=== PATIENT | male | born 1950 ===

== ENCOUNTER 2018-10-01 16:47 | Inpatient (IN) | payer MEDICARE, OTHER ==
[~2018-10-01] VITALS: Ht 185.4 cm; Wt 116.5 kg
[~2018-10-01 16:47] MED LIST: PALI6 PO; QUET300T2 PO; QUET400T PO
[2018-10-01] MEDS ORDERED: ARIP15TA2 PO (19:02)
[2018-10-01] MEDS ORDERED: ALBU8.5H8 IH (19:02)
[2018-10-01] MEDS ORDERED: OMEP20 PO (19:02)
[2018-10-01] MEDS ORDERED: LITH300C3 PO (19:02)
[2018-10-01] MEDS ORDERED: METO25XL PO (19:02)
[2018-10-01 19:35] LABS: BASOPHILS % (AUTO) 0.6 % (0.0-2.0); EOSINOPHILS % (AUTO) 3.4 % (1.0-6.0); HEMATOCRIT 47.2 % (41-53); HEMOGLOBIN 15.9 g/dL (13.5-17.5); LYMPHOCYTES # (AUTO) 3.8 K/uL (1.0-4.8); LYMPHOCYTES % (AUTO) 35.3 % (22.0-44.0); MEAN CORPUSCULAR HEMOGLOBIN 32.4 pg (26.0-34.0); MEAN CORPUSCULAR HGB CONC 33.8 G/dL (31.0-37.0); MEAN CORPUSCULAR VOLUME 96 fL (80-100); MONOCYTES # (AUTO) 1.2 K/uL (0.1-1.0); MONOCYTES % (AUTO) 11.4 % (2.0-9.0); NEUTROPHILS # (AUTO) 5.3 K/uL (1.8-7.7); NEUTROPHILS % (AUTO) 49.3 % (40.0-70.0); PLATELET COUNT (AUTO) 361 K/uL (150-450); RED BLOOD CELL COUNT(AUTO) 4.93 MIL/uL (4.50-5.90); RED CELL DISTRIBUTION WIDTH 14.2 % (11.5-14.5)
[2018-10-01 19:48] LABS: ANION GAP 9 mmol/L (8-16); CALCIUM, TOTAL 9.7 mg/dL (8.8-10.5); CARBON DIOXIDE 27 mmol/L (22-29); CHLORIDE 104 mmol/L (98-107); CREATININE 0.83 mg/dL (0.60-1.30); GLOMERULAR FILTR. RATE CALC > 60 mL/min (>60); GLUCOSE,RANDOM 99 mg/dL (70-110); POTASSIUM 4.2 mmol/L (3.5-5.1); SODIUM SERUM 140 mmol/L (136-145); UREA NITROGEN, BLOOD 7 mg/dL (7-18)
[2018-10-01 19:54] LABS: ALANINE AMINOTRANSFERASE 51 U/L (12-78); ALKALINE PHOSPHATASE 84 U/L (46-116); ASPARTATE AMINOTRANSFERASE 25 U/L (15-37); BILIRUBIN,TOTAL 0.5 mg/dL (0.1-1.0); TOTAL PROTEIN, SERUM 7.8 g/dL (6.4-8.2)
[2018-10-01 20:08] LABS: LITHIUM 0.23 mmol/L (0.60-1.20)
[2018-10-01 20:21] LABS: B-TYPE NATRIURETIC PEPTIDE 6 pg/mL (0-100)
[2018-10-01 20:29] LABS: CREATINE KINASE, TOTAL ONLY 172 U/L (39-308); THYROID STIMULATING HORMONE 0.83 uIU/mL (0.36-3.74)
[2018-10-01 20:53] LABS: APPEARANCE,URINE CLEAR (CLEAR); BILIRUBIN,URINE NEGATIVE (NEGATIVE); GLUCOSE, URINE (UA) NEGATIVE (NEGATIVE); KETONES,URINE NEGATIVE (NEGATIVE); LEUKOCYTE ESTERASE ,URINE SMALL (NEGATIVE); NITRATE,URINE NEGATIVE (NEGATIVE); OCCULT BLOOD,URINE NEGATIVE (NEGATIVE); PH,URINE 6.5 (5.0-8.0); PROTEIN,URINE NEGATIVE (NEGATIVE); UROBILINOGEN,URINE 0.2 mg/dL (<=1.0)
[2018-10-01 20:59] LABS: BACTERIA,URINE Few /HPF (None Seen); RBC,URINE 0-2 /HPF (0-2); WBC,URINE 26-50 /HPF (0-5)
[2018-10-01 21:00] LABS: SQUAMOUS EPITHELIAL CELL,UR Rare /LPF (None Seen)
[2018-10-01] MEDS ORDERED: 0.9% SODIUM CHLORIDE 10 ML SYRINGE IVP PRN (21:00)
[2018-10-01] MEDS ORDERED: ACETAMINOPHEN 325 MG TABLET PO PRN ×2 (21:00→22:30)
[2018-10-01] MEDS ORDERED: GuaiFENesin/D-METHORPHAN/PHENYLEPH 5 ML LIQUID ORAL.SYG PO PRN (21:45)
[2018-10-01] MEDS ORDERED: HYDROCODONE/ACETAMINOPHEN 5-325 MG TABLET PO PRN (22:30)
[2018-10-01] MEDS ORDERED: ONDANSETRON HCL 4 MG/2 ML VIAL IVP PRN (22:30)
[2018-10-01] MEDS ORDERED: BISACODYL 10 MG RECTAL RECTAL SUPPOSITORY PR PRN (22:30)
[2018-10-01] MEDS ORDERED: ALBUTEROL SULFATE HFA 90 MCG/PUFF 8 GM INHALER IH PRN (22:30)
[2018-10-01] MEDS ORDERED: MAGNESIUM HYDROXIDE SUSPENSION 30 ML UDCUP PO PRN (22:30)
[2018-10-01] MEDS ORDERED: MORPHINE SULFATE 4 MG/ML SYRINGE IVP PRN (22:30)
[2018-10-01 23:03] LABS: INFLUENZA TYPE A NEGATIVE FOR TYPE A (NEGATIVE); INFLUENZA TYPE B NEGATIVE FOR TYPE B (NEGATIVE)
[2018-10-02] MEDS: HEPARIN SODIUM,PORCINE 5,000 UNITS/ML VIAL SQ SCH ×4 (00:49→23:41)
[2018-10-02 04:30] LABS: BASOPHILS % (AUTO) 0.6 % (0.0-2.0); HEMATOCRIT 45.8 % (41-53); HEMOGLOBIN 15.8 g/dL (13.5-17.5); LYMPHOCYTES # (AUTO) 2.4 K/uL (1.0-4.8); LYMPHOCYTES % (AUTO) 24.1 % (22.0-44.0); MEAN CORPUSCULAR HEMOGLOBIN 33.3 pg (26.0-34.0); MEAN CORPUSCULAR HGB CONC 34.6 G/dL (31.0-37.0); MEAN CORPUSCULAR VOLUME 96 fL (80-100); MONOCYTES % (AUTO) 10.2 % (2.0-9.0); NEUTROPHILS # (AUTO) 6.2 K/uL (1.8-7.7); NEUTROPHILS % (AUTO) 62.1 % (40.0-70.0); PLATELET COUNT (AUTO) 313 K/uL (150-450); RED BLOOD CELL COUNT(AUTO) 4.75 MIL/uL (4.50-5.90); RED CELL DISTRIBUTION WIDTH 13.8 % (11.5-14.5)
[2018-10-02 04:54] LABS: ALANINE AMINOTRANSFERASE 50 U/L (12-78); ALBUMIN 3.6 g/dL (3.4-5.0); ALKALINE PHOSPHATASE 71 U/L (46-116); ANION GAP 5 mmol/L (8-16); ASPARTATE AMINOTRANSFERASE 24 U/L (15-37); BILIRUBIN,TOTAL 0.5 mg/dL (0.1-1.0); CALCIUM, TOTAL 8.9 mg/dL (8.8-10.5); CARBON DIOXIDE 29 mmol/L (22-29); CHLORIDE 107 mmol/L (98-107); CREATININE 0.91 mg/dL (0.60-1.30); GLOMERULAR FILTR. RATE CALC > 60 mL/min (>60); GLUCOSE,RANDOM 112 mg/dL (70-110); POTASSIUM 3.8 mmol/L (3.5-5.1); SODIUM SERUM 141 mmol/L (136-145); THYROID STIMULATING HORMONE 0.75 uIU/mL (0.36-3.74); TOTAL PROTEIN, SERUM 7.1 g/dL (6.4-8.2); UREA NITROGEN, BLOOD 12 mg/dL (7-18)
[2018-10-02] MEDS: PANTOPRAZOLE SODIUM 40 MG DR TABLET PO SCH (09:18)
[2018-10-02] MEDS: DOCUSATE SODIUM 100 MG CAPSULE PO SCH ×2 (09:18→20:27)
[2018-10-02 09:45] VITALS: BP 151/73
[2018-10-02 12:00] VITALS: BP 147/79
[2018-10-02] MEDS: NICOTINE 21 MG/24 HOUR PATCH TD SCH (12:12)
[2018-10-02] MEDS ORDERED: PNEUMOCOCCAL VACCINE POLYVALENT 0.5 ML VIAL [PPSV23] IM ONE (12:15)
[2018-10-02 16:00] VITALS: BP 116/42
[2018-10-02 20:00] VITALS: BP 151/80
[2018-10-03] VITALS (7 sets, daily range): BP systolic 121–136; BP diastolic 45–83
[2018-10-03] MEDS: HEPARIN SODIUM,PORCINE 5,000 UNITS/ML VIAL SQ SCH ×3 (08:34→23:33)
[2018-10-03] MEDS: DOCUSATE SODIUM 100 MG CAPSULE PO SCH ×2 (08:34→20:10)
[2018-10-03] MEDS: PANTOPRAZOLE SODIUM 40 MG DR TABLET PO SCH (08:34)
[2018-10-03] MEDS: NICOTINE 21 MG/24 HOUR PATCH TD SCH (08:35)
[2018-10-03] MEDS ORDERED: HydrALAZINE HCL 20 MG/ML VIAL IVP PRN (15:45)
[2018-10-04 03:37] VITALS: BP 138/63
[2018-10-04 07:23] VITALS: BP 139/62
[2018-10-04] MEDS: HEPARIN SODIUM,PORCINE 5,000 UNITS/ML VIAL SQ SCH ×2 (08:00→16:00)
[2018-10-04] MEDS: DOCUSATE SODIUM 100 MG CAPSULE PO SCH ×2 (09:00→19:23)
[2018-10-04] MEDS: PANTOPRAZOLE SODIUM 40 MG DR TABLET PO SCH (09:00)
[2018-10-04] MEDS: NICOTINE 21 MG/24 HOUR PATCH TD SCH (09:00)
[2018-10-04 09:34] LABS: B-TYPE NATRIURETIC PEPTIDE 22 pg/mL (0-100)
[2018-10-04 09:48] LABS: ANION GAP 7 mmol/L (8-16); CALCIUM, TOTAL 9.3 mg/dL (8.8-10.5); CARBON DIOXIDE 28 mmol/L (22-29); CHLORIDE 106 mmol/L (98-107); CREATINE KINASE, TOTAL ONLY 273 U/L (39-308); CREATININE 0.74 mg/dL (0.60-1.30); GLOMERULAR FILTR. RATE CALC > 60 mL/min (>60); GLUCOSE,RANDOM 122 mg/dL (70-110); POTASSIUM 3.8 mmol/L (3.5-5.1); SODIUM SERUM 141 mmol/L (136-145); THYROID STIMULATING HORMONE 1.06 uIU/mL (0.36-3.74); UREA NITROGEN, BLOOD 10 mg/dL (7-18)
[2018-10-04] MEDS ORDERED: LORazepam 2 MG/ML VIAL IVP PRN (14:00)
[2018-10-04] MEDS: ARIPiprazole 15 MG TABLET PO SCH (16:00)
[2018-10-04 19:38] VITALS: BP 144/79
[2018-10-04] MEDS: ZOLPIDEM TARTRATE 5 MG TABLET PO PRN (22:54)
[2018-10-04 23:54] VITALS: BP 145/74
[2018-10-05] MEDS: HEPARIN SODIUM,PORCINE 5,000 UNITS/ML VIAL SQ SCH ×3 (00:08→16:41)
[2018-10-05 05:21] VITALS: BP 137/81
[2018-10-05 06:26] LABS: ANION GAP 7 mmol/L (8-16); CALCIUM, TOTAL 9.1 mg/dL (8.8-10.5); CARBON DIOXIDE 27 mmol/L (22-29); CHLORIDE 107 mmol/L (98-107); CREATININE 0.68 mg/dL (0.60-1.30); GLOMERULAR FILTR. RATE CALC > 60 mL/min (>60); GLUCOSE,RANDOM 107 mg/dL (70-110); POTASSIUM 3.6 mmol/L (3.5-5.1); SODIUM SERUM 141 mmol/L (136-145); UREA NITROGEN, BLOOD 9 mg/dL (7-18)
[2018-10-05] MEDS: PANTOPRAZOLE SODIUM 40 MG DR TABLET PO SCH (07:51)
[2018-10-05] MEDS: DOCUSATE SODIUM 100 MG CAPSULE PO SCH ×2 (07:51→20:37)
[2018-10-05] MEDS: NICOTINE 21 MG/24 HOUR PATCH TD SCH (07:52)
[2018-10-05] MEDS: ARIPiprazole 15 MG TABLET PO SCH (07:52)
[2018-10-05 07:57] LABS: BASOPHILS % (AUTO) 0.6 % (0.0-2.0); EOSINOPHILS % (AUTO) 1.7 % (1.0-6.0); HEMATOCRIT 44.4 % (41-53); HEMOGLOBIN 15.6 g/dL (13.5-17.5); LYMPHOCYTES # (AUTO) 2.2 K/uL (1.0-4.8); LYMPHOCYTES % (AUTO) 21.4 % (22.0-44.0); MEAN CORPUSCULAR HEMOGLOBIN 33.5 pg (26.0-34.0); MEAN CORPUSCULAR HGB CONC 35.1 G/dL (31.0-37.0); MEAN CORPUSCULAR VOLUME 96 fL (80-100); MONOCYTES # (AUTO) 1.1 K/uL (0.1-1.0); MONOCYTES % (AUTO) 11.2 % (2.0-9.0); NEUTROPHILS # (AUTO) 6.6 K/uL (1.8-7.7); NEUTROPHILS % (AUTO) 65.1 % (40.0-70.0); PLATELET COUNT (AUTO) 315 K/uL (150-450); RED BLOOD CELL COUNT(AUTO) 4.65 MIL/uL (4.50-5.90); RED CELL DISTRIBUTION WIDTH 13.8 % (11.5-14.5)
[2018-10-05 08:32] VITALS: BP 135/74
[2018-10-05 11:42] VITALS: BP 126/49
[2018-10-05 16:02] VITALS: BP 141/62
[2018-10-05 19:29] VITALS: BP 131/68
[2018-10-06 00:15] VITALS: BP 121/49
[2018-10-06 05:17] VITALS: BP 107/54
[2018-10-06 07:00] LABS: ANION GAP 7 mmol/L (8-16); CALCIUM, TOTAL 9.4 mg/dL (8.8-10.5); CARBON DIOXIDE 27 mmol/L (22-29); CHLORIDE 107 mmol/L (98-107); CREATINE KINASE, TOTAL ONLY 173 U/L (39-308); CREATININE 0.67 mg/dL (0.60-1.30); GLOMERULAR FILTR. RATE CALC > 60 mL/min (>60); GLUCOSE,RANDOM 109 mg/dL (70-110); POTASSIUM 4.3 mmol/L (3.5-5.1); SODIUM SERUM 141 mmol/L (136-145); UREA NITROGEN, BLOOD 12 mg/dL (7-18)
[2018-10-06 07:16] VITALS: BP 114/60
[2018-10-06] MEDS: HEPARIN SODIUM,PORCINE 5,000 UNITS/ML VIAL SQ SCH ×3 (08:00→16:00)
[2018-10-06] MEDS: ARIPiprazole 15 MG TABLET PO SCH ×2 (08:19→20:13)
[2018-10-06] MEDS: NICOTINE 21 MG/24 HOUR PATCH TD SCH (08:20)
[2018-10-06] MEDS: PANTOPRAZOLE SODIUM 40 MG DR TABLET PO SCH (08:20)
[2018-10-06] MEDS: DOCUSATE SODIUM 100 MG CAPSULE PO SCH ×2 (08:20→20:13)
[2018-10-06 08:27] LABS: EOSINOPHILS % (AUTO) 4.7 % (1.0-6.0); HEMATOCRIT 44.6 % (41-53); HEMOGLOBIN 15.3 g/dL (13.5-17.5); LYMPHOCYTES # (AUTO) 2.2 K/uL (1.0-4.8); LYMPHOCYTES % (AUTO) 27.1 % (22.0-44.0); MEAN CORPUSCULAR HEMOGLOBIN 32.6 pg (26.0-34.0); MEAN CORPUSCULAR HGB CONC 34.3 G/dL (31.0-37.0); MEAN CORPUSCULAR VOLUME 95 fL (80-100); MONOCYTES % (AUTO) 12.6 % (2.0-9.0); NEUTROPHILS # (AUTO) 4.5 K/uL (1.8-7.7); NEUTROPHILS % (AUTO) 54.6 % (40.0-70.0); PLATELET COUNT (AUTO) 311 K/uL (150-450); RED CELL DISTRIBUTION WIDTH 13.7 % (11.5-14.5)
[2018-10-06 11:25] VITALS: BP 123/70
[2018-10-06] MEDS ORDERED: GuaiFENesin/D-METHORPHAN [SUGAR-FREE] 200-20MG/10 ML SYRUP UDCUP PO PRN (11:30)
[2018-10-06 15:07] VITALS: BP 133/67
[2018-10-06 19:21] VITALS: BP 135/70
[2018-10-07] VITALS (7 sets, daily range): BP systolic 127–139; BP diastolic 54–74
[2018-10-07] MEDS: GuaiFENesin/D-METHORPHAN [SUGAR-FREE] 200-20MG/10 ML SYRUP UDCUP PO PRN ×2 (03:12→20:59)
[2018-10-07] MEDS: HEPARIN SODIUM,PORCINE 5,000 UNITS/ML VIAL SQ SCH ×4 (08:00→23:09)
[2018-10-07] MEDS: PANTOPRAZOLE SODIUM 40 MG DR TABLET PO SCH (08:22)
[2018-10-07] MEDS: NICOTINE 21 MG/24 HOUR PATCH TD SCH (08:22)
[2018-10-07] MEDS: DOCUSATE SODIUM 100 MG CAPSULE PO SCH ×2 (08:22→20:10)
[2018-10-07 08:51] LABS: BASOPHILS % (AUTO) 0.7 % (0.0-2.0); EOSINOPHILS % (AUTO) 3.1 % (1.0-6.0); HEMATOCRIT 45.2 % (41-53); HEMOGLOBIN 15.6 g/dL (13.5-17.5); LYMPHOCYTES # (AUTO) 1.8 K/uL (1.0-4.8); MEAN CORPUSCULAR HEMOGLOBIN 33.1 pg (26.0-34.0); MEAN CORPUSCULAR HGB CONC 34.6 G/dL (31.0-37.0); MEAN CORPUSCULAR VOLUME 96 fL (80-100); MONOCYTES # (AUTO) 0.9 K/uL (0.1-1.0); MONOCYTES % (AUTO) 10.8 % (2.0-9.0); NEUTROPHILS # (AUTO) 4.9 K/uL (1.8-7.7); NEUTROPHILS % (AUTO) 62.4 % (40.0-70.0); PLATELET COUNT (AUTO) 305 K/uL (150-450); RED BLOOD CELL COUNT(AUTO) 4.72 MIL/uL (4.50-5.90); RED CELL DISTRIBUTION WIDTH 13.5 % (11.5-14.5)
[2018-10-07 09:47] LABS: ANION GAP 8 mmol/L (8-16); CALCIUM, TOTAL 9.2 mg/dL (8.8-10.5); CARBON DIOXIDE 27 mmol/L (22-29); CHLORIDE 105 mmol/L (98-107); CREATINE KINASE, TOTAL ONLY 516 U/L (39-308); CREATININE 0.79 mg/dL (0.60-1.30); GLOMERULAR FILTR. RATE CALC > 60 mL/min (>60); GLUCOSE,RANDOM 147 mg/dL (70-110); POTASSIUM 4.1 mmol/L (3.5-5.1); SODIUM SERUM 140 mmol/L (136-145); UREA NITROGEN, BLOOD 15 mg/dL (7-18)
[2018-10-07] MEDS ORDERED: ARIPiprazole 15 MG TABLET PO ONE (10:15)
[2018-10-08 05:11] VITALS: BP 129/74
[2018-10-08 06:19] LABS: BASOPHILS % (AUTO) 0.5 % (0.0-2.0); EOSINOPHILS % (AUTO) 3.8 % (1.0-6.0); HEMATOCRIT 44.4 % (41-53); HEMOGLOBIN 15.2 g/dL (13.5-17.5); LYMPHOCYTES % (AUTO) 22.6 % (22.0-44.0); MEAN CORPUSCULAR HEMOGLOBIN 32.6 pg (26.0-34.0); MEAN CORPUSCULAR HGB CONC 34.3 G/dL (31.0-37.0); MEAN CORPUSCULAR VOLUME 95 fL (80-100); MONOCYTES % (AUTO) 11.1 % (2.0-9.0); NEUTROPHILS # (AUTO) 5.5 K/uL (1.8-7.7); PLATELET COUNT (AUTO) 337 K/uL (150-450); RED BLOOD CELL COUNT(AUTO) 4.67 MIL/uL (4.50-5.90); RED CELL DISTRIBUTION WIDTH 13.8 % (11.5-14.5)
[2018-10-08 07:09] LABS: ALANINE AMINOTRANSFERASE 107 U/L (12-78); ALBUMIN 3.5 g/dL (3.4-5.0); ALKALINE PHOSPHATASE 71 U/L (46-116); ANION GAP 11 mmol/L (8-16); ASPARTATE AMINOTRANSFERASE 54 U/L (15-37); BILIRUBIN,TOTAL 0.2 mg/dL (0.1-1.0); CALCIUM, TOTAL 9.2 mg/dL (8.8-10.5); CARBON DIOXIDE 28 mmol/L (22-29); CHLORIDE 104 mmol/L (98-107); GLOMERULAR FILTR. RATE CALC > 60 mL/min (>60); GLUCOSE,RANDOM 125 mg/dL (70-110); SODIUM SERUM 143 mmol/L (136-145); TOTAL PROTEIN, SERUM 7.3 g/dL (6.4-8.2); UREA NITROGEN, BLOOD 14 mg/dL (7-18)
[2018-10-08 07:37] VITALS: BP 127/55
[2018-10-08] MEDS: HEPARIN SODIUM,PORCINE 5,000 UNITS/ML VIAL SQ SCH ×3 (08:00→23:48)
[2018-10-08] MEDS: NICOTINE 21 MG/24 HOUR PATCH TD SCH (09:00)
[2018-10-08] MEDS: ARIPiprazole 15 MG TABLET PO SCH ×2 (09:00→18:36)
[2018-10-08] MEDS: PANTOPRAZOLE SODIUM 40 MG DR TABLET PO SCH (09:00)
[2018-10-08] MEDS: DOCUSATE SODIUM 100 MG CAPSULE PO SCH ×2 (09:00→21:00)
[2018-10-08] MEDS: GuaiFENesin/D-METHORPHAN [SUGAR-FREE] 200-20MG/10 ML SYRUP UDCUP PO PRN ×3 (10:43→20:58)
[2018-10-08 11:57] VITALS: BP 125/65
[2018-10-08 15:43] VITALS: BP 135/57
[2018-10-08 19:21] VITALS: BP 131/69
[2018-10-08] MEDS: ZOLPIDEM TARTRATE 5 MG TABLET PO PRN (20:58)
[2018-10-08 23:01] VITALS: BP 132/61
[2018-10-09 04:15] VITALS: BP 132/57
[2018-10-09 05:40] LABS: BASOPHILS % (AUTO) 0.7 % (0.0-2.0); EOSINOPHILS % (AUTO) 3.7 % (1.0-6.0); HEMATOCRIT 45.2 % (41-53); HEMOGLOBIN 15.9 g/dL (13.5-17.5); LYMPHOCYTES # (AUTO) 2.2 K/uL (1.0-4.8); LYMPHOCYTES % (AUTO) 25.6 % (22.0-44.0); MEAN CORPUSCULAR HEMOGLOBIN 33.5 pg (26.0-34.0); MEAN CORPUSCULAR HGB CONC 35.1 G/dL (31.0-37.0); MEAN CORPUSCULAR VOLUME 96 fL (80-100); MONOCYTES # (AUTO) 1.2 K/uL (0.1-1.0); MONOCYTES % (AUTO) 13.8 % (2.0-9.0); NEUTROPHILS # (AUTO) 4.7 K/uL (1.8-7.7); NEUTROPHILS % (AUTO) 56.2 % (40.0-70.0); PLATELET COUNT (AUTO) 313 K/uL (150-450); RED BLOOD CELL COUNT(AUTO) 4.74 MIL/uL (4.50-5.90); RED CELL DISTRIBUTION WIDTH 13.8 % (11.5-14.5)
[2018-10-09 06:35] LABS: ALANINE AMINOTRANSFERASE 113 U/L (12-78); ALBUMIN 3.7 g/dL (3.4-5.0); ALKALINE PHOSPHATASE 78 U/L (46-116); ANION GAP 7 mmol/L (8-16); ASPARTATE AMINOTRANSFERASE 46 U/L (15-37); BILIRUBIN,TOTAL 0.2 mg/dL (0.1-1.0); CALCIUM, TOTAL 9.5 mg/dL (8.8-10.5); CARBON DIOXIDE 31 mmol/L (22-29); CHLORIDE 104 mmol/L (98-107); CREATININE 0.77 mg/dL (0.60-1.30); GLOMERULAR FILTR. RATE CALC > 60 mL/min (>60); GLUCOSE,RANDOM 121 mg/dL (70-110); POTASSIUM 3.9 mmol/L (3.5-5.1); SODIUM SERUM 142 mmol/L (136-145); TOTAL PROTEIN, SERUM 7.4 g/dL (6.4-8.2); UREA NITROGEN, BLOOD 13 mg/dL (7-18)
[2018-10-09 07:31] VITALS: BP 129/60
[2018-10-09] MEDS: HEPARIN SODIUM,PORCINE 5,000 UNITS/ML VIAL SQ SCH ×4 (08:00→23:28)
[2018-10-09] MEDS: NICOTINE 21 MG/24 HOUR PATCH TD SCH (08:32)
[2018-10-09] MEDS: PANTOPRAZOLE SODIUM 40 MG DR TABLET PO SCH ×2 (08:34→08:37)
[2018-10-09] MEDS: DOCUSATE SODIUM 100 MG CAPSULE PO SCH ×3 (08:34→21:37)
[2018-10-09] MEDS: ARIPiprazole 15 MG TABLET PO SCH ×2 (08:34→08:37)
[2018-10-09 11:07] VITALS: BP 130/54
[2018-10-09 15:30] VITALS: BP 129/71
[2018-10-09] MEDS: GuaiFENesin/D-METHORPHAN [SUGAR-FREE] 200-20MG/10 ML SYRUP UDCUP PO PRN ×2 (18:49→23:33)
[2018-10-09 19:15] VITALS: BP 138/70
[2018-10-09 23:21] VITALS: BP 130/68
[2018-10-10 03:57] VITALS: BP 114/68
[2018-10-10 07:05] VITALS: BP 141/80
[2018-10-10] MEDS: GuaiFENesin/D-METHORPHAN [SUGAR-FREE] 200-20MG/10 ML SYRUP UDCUP PO PRN ×3 (08:19→21:16)
[2018-10-10] MEDS: PANTOPRAZOLE SODIUM 40 MG DR TABLET PO SCH (08:20)
[2018-10-10] MEDS: HEPARIN SODIUM,PORCINE 5,000 UNITS/ML VIAL SQ SCH ×2 (08:20→15:56)
[2018-10-10] MEDS: DOCUSATE SODIUM 100 MG CAPSULE PO SCH ×2 (08:20→21:07)
[2018-10-10] MEDS: NICOTINE 21 MG/24 HOUR PATCH TD SCH (08:20)
[2018-10-10] MEDS: ARIPiprazole 15 MG TABLET PO SCH (08:20)
[2018-10-10 11:17] VITALS: BP 127/76
[2018-10-10 15:00] VITALS: BP 137/83
[2018-10-10 19:20] VITALS: BP 130/74
[2018-10-10 23:09] VITALS: BP 119/54
[2018-10-11] MEDS: HEPARIN SODIUM,PORCINE 5,000 UNITS/ML VIAL SQ SCH ×2 (01:16→08:17)
[2018-10-11] MEDS: GuaiFENesin/D-METHORPHAN [SUGAR-FREE] 200-20MG/10 ML SYRUP UDCUP PO PRN ×2 (01:17→05:28)
[2018-10-11 04:07] VITALS: BP 118/51
[2018-10-11 07:19] VITALS: BP 112/54
[2018-10-11] MEDS: NICOTINE 21 MG/24 HOUR PATCH TD SCH (08:14)
[2018-10-11] MEDS: DOCUSATE SODIUM 100 MG CAPSULE PO SCH (08:17)
[2018-10-11] MEDS: PANTOPRAZOLE SODIUM 40 MG DR TABLET PO SCH (08:17)
[2018-10-11] MEDS: ARIPiprazole 15 MG TABLET PO SCH (08:17)
[2018-10-11 10:54] VITALS: BP 142/51
== END 2018-10-11 15:40 | disposition home or self-care (01) | DRG 310 ==
LOC: EMS 16:48 → ICU 10-02 07:03 → 5S 10-03 18:30
PROVIDERS: ADMIT Internal Medicine; ATTEND Internal Medicine
DX: I44.1 Atrioventricular block, second degree (principal); R00.1 Bradycardia, unspecified; J45.909 Unspecified asthma, uncomplicated; K21.9 Gastro-esophageal reflux disease without esophagitis; I10 Essential (primary) hypertension; F17.210 Nicotine dependence, cigarettes, uncomplicated; J44.9 Chronic obstructive pulmonary disease, unspecified; F25.9 Schizoaffective disorder, unspecified; F31.9 Bipolar disorder, unspecified; Z78.1 Physical restraint status; Z83.3 Family history of diabetes mellitus; Z28.21 Immunization not carried out because of patient refusal
CPT/HCPCS: 83735; 84443; 87081; 87086; 87804; 90686; 90732; 93005; 93306; 99291; G0378; G0480; J1644; J3535